=== PATIENT | female | born 1965 | race Caucasian/White ===

== ENCOUNTER 2017-05-02 19:00 | Emergency (ER) | END 2017-05-02 21:30 | disposition home or self-care (01) | DX: S90.464A Insect bite (nonvenomous), right lesser toe(s), initial encounter (principal); W57.XXXA Bitten or stung by nonvenomous insect and other nonvenomous arthropods, initial encounter; Y92.9 Unspecified place or not applicable ==

== ENCOUNTER 2017-11-09 09:22 | Emergency (ER) | END 2017-11-09 14:46 | disposition home or self-care (01) ==

== ENCOUNTER 2018-01-05 08:37 | Emergency (ER) | END 2018-01-05 09:49 | disposition home or self-care (01) ==

== ENCOUNTER 2018-01-10 10:04 | Emergency (ER) | END 2018-01-10 12:25 | disposition home or self-care (01) ==